=== PATIENT | female | born 1995 | race Native Hawaiian/Other Pacific Islander ===

== ENCOUNTER 2021-08-17 15:59 | Emergency (ER) | payer BC ==
[~2021-08-17] VITALS: Ht 170.2 cm; Wt 72.7 kg
[2021-08-17] MEDS ORDERED: ACETAMINOPHEN 500 MG TABLET PO ONE (16:30)
[2021-08-17 16:50] LABS: COVID AG,FIA SOURCE NASOPHARYNGEAL
[2021-08-17 17:16] LABS: INFLUENZA TYPE B NEGATIVE FOR TYPE B (NEGATIVE)
[2021-08-17 17:23] LABS: INFLUENZA TYPE A POSITIVE FOR TYPE A (NEGATIVE)
[2021-08-17 17:42] LABS: RAPID GROUP A STREP NEGATIVE (NEGATIVE)
[2021-08-17] MEDS ORDERED: OSEL75 PO (17:50)
[2021-08-17 18:47] VITALS: BP 115/71
== END 2021-08-17 18:49 | disposition home or self-care (01) ==
LOC: EMS 15:59
DX: J10.1 Influenza due to other identified influenza virus with other respiratory manifestations (principal); Z20.822 Contact with and (suspected) exposure to COVID-19
CPT/HCPCS: 87430; 87804; 99283